=== PATIENT | female | born 1985 | race Caucasian/White ===

== ENCOUNTER 2016-03-12 03:50 | Emergency (ER) | payer BC ==
[~2016-03-12] VITALS: Ht 160 cm; Wt 81.0 kg
[~2016-03-12 03:50] MED LIST: HYDR-902 PO; IBUP800T25 PO; NO MEDS
[2016-03-12 03:58] VITALS: Ht 160 cm; Wt 81.0 kg
[2016-03-12] MEDS ORDERED: ONDANSETRON 4 MG INJ IV STA (04:44)
[2016-03-12] MEDS ORDERED: SOD CHLORIDE 0.9% 1,000 ML IV STA (04:44)
[2016-03-12] MEDS ORDERED: morphine 4 MG/ML VIAL IV STA (04:44)
[2016-03-12 05:11] LABS: BASOPHILS % 0.4 % (0.0-2.0); EOSINOPHILS # 0.1 10^3/ul (0.0-0.5); EOSINOPHILS % 1.1 % (0.0-7.0); HEMATOCRIT 39.9 % (37.0-47.0); HEMOGLOBIN 13.6 g/dl (12.0-16.0); LYMPHOCYTES # 2.1 10^3/ul (0.8-2.9); LYMPHOCYTES % 19.1 % (15.0-51.0); MEAN CORPUSCULAR HEMOGLOBIN 28.8 pg (29.0-33.0); MEAN CORPUSCULAR VOLUME 84.7 fl (82.0-101.0); MEAN PLATELET VOLUME 8.5 fl (7.4-10.4); MONOCYTE # 0.7 10^3/ul (0.3-0.9); MONOCYTES % 6.6 % (0.0-11.0); NEUTROPHIL # 7.9 10^3/ul (1.6-7.5); NEUTROPHILS % 72.8 % (39.0-77.0); PLATELET COUNT 291 10^3/UL (140-440); RED BLOOD COUNT 4.71 10^6/ul (4.20-5.40); RED CELL DISTRIBUTION WIDTH 12.3 % (11.5-14.5); UNCORRECTED WBC 10.8 10^3/ul (4.8-10.8); WHITE BLOOD COUNT 10.8 10^3/ul (4.8-10.8)
[2016-03-12 05:16] LABS: ALBUMIN 4.1 g/dl (3.3-4.9)
[2016-03-12 05:17] LABS: POTASSIUM 4.2 mmol/L (3.5-5.1)
[2016-03-12 05:19] LABS: ALBUMIN/GLOBULIN RATIO 1.17; BILIRUBIN,INDIRECT 0.1 mg/dl (0-1.1); BILIRUBIN,TOTAL 0.1 mg/dl (0.2-1.3); CREATININE 0.65 mg/dl (0.44-1.00); TOTAL PROTEIN 7.6 g/dl (6.1-8.1)
[2016-03-12 05:20] LABS: CALCIUM 9.5 mg/dl (8.4-10.2)
[2016-03-12 05:22] LABS: CONDITION 1
--- NOTE | 2016-03-12 05:40 | RADRPT ---
PROCEDURE: US Abdomen (right upper quadrant). CLINICAL INDICATION: Abdominal pain. TECHNIQUE: Multiple real-time longitudinal and transverse images of the right upper quadrant of th e abdomen were acquired utilizing a curved array transducer. Images were reviewed on a high-resoluti on PACS workstation. COMPARISON: None FINDINGS: The liver is normal in size and demonstrates normal echogenicity. No focal intrahepatic mass is id entified. The gallbladder contains stones. There is no pericholecystic fluid or gallbladder wall t hickening. No intra or extrahepatic biliary dilatation is seen. The common bile duct measures 4.4 m m in maximal dimension. The portal and hepatic veins are patent demonstrating normal directional tuan w. The visualized portions of the pancreas are unremarkable with obscuration of the tail of the panc reas. No free fluid is identified. The right kidney measures 12.6 cm in length. There is normal echogenicity within the right kidney. There is no perinephric fluid collection. No hydronephrosis, mass, or calculus is seen. IMPRESSION: Cholelithiasis. RPTAT: HH .Brianda Al MD, MD Date Time Electronically viewed and signed by .Brianda Al MD, MD on 03/12/2016 05:40 .G/
--- NOTE | 2016-03-12 05:46 | ERD ---
ER Documentation Chief Complaint Date/Time DATE: 03/12/16 TIME: 05:44 Chief Complaint right side abd pain since 0130, same as previous GB pain. -n/v HPI This a very pleasant 30 year female comes right-sided abdominal pain since 131. She has history of gallstones and says is similar to previous pain. Pain is mild to moderate intensity. Mild nausea no vomiting. Pain is mild to moderate in intensity with no exacerbating or relieving factors. ROS All systems reviewed and are negative except as per history of present illness. Medications Home Meds Active Scripts Hydrocodone/Acetaminophen ([place] 10-325 Tablet) 1 Each Tablet, 1 EACH PO Q6, # 20 TAB Prov:ANA LEONG PA-C 02/14/16 Ibuprofen* (Motrin*) 800 Mg Tab, 800 MG PO Q6H Y for PAIN AND OR ELEVATED TEMP, #30 TAB Prov:NAA LEONG PA-C 02/14/16 Reported Medications [No Meds] No Conflict Check 08/08/15 Allergies Allergies: Coded Allergies: No Known Allergy (Unverified , 02/14/16) PMhx/Soc History of Surgery: Yes (NOSE) Anesthesia Reaction: No Hx Neurological Disorder: No Hx Respiratory Disorders: No Hx Cardiac Disorders: No Hx Psychiatric Problems: No Hx Miscellaneous Medical Probl: No Hx Alcohol Use: Yes (OCCASIONAL) Hx Substance Use: No Hx Tobacco Use: No Smoking Status: Never smoker Physical Exam Vitals Vital Signs Date Time Temp Pulse Resp B/P Pulse Ox O2 Delivery O2 Flow Rate FiO2 03/12/16 03:58 97.6 64 18 136/87 99 Physical Exam Const: [] Head: Atraumatic Eyes: Normal Conjunctiva ENT: Normal External Ears, Nose and Mouth. Neck: Full range of motion..~ No meningismus. Resp: Clear to auscultation bilaterally Cardio: Regular rate and rhythm, no murmurs Abd: Soft, non tender, non distended. Normal bowel sounds Skin: No petechiae or rashes Back: No midline or flank tenderness Ext: No cyanosis, or edema Neur: Awake and alert Psych: Normal Mood and Affect Result Diagram: 03/12/16 0450 03/12/16 0450 Results 24 hrs Laboratory Tests Test 03/12/16 04:50 Alanine Aminotransferase (ALT/SGPT) 30IU/L Albumin 4.1g/dl Albumin/Globulin Ratio 1.17 Alkaline Phosphatase 71IU/L Anion Gap 19 Aspartate Amino Transf (AST/SGOT) 23IU/L Basophils # 0.010^3/ul Basophils % 0.4% Blood Morphology Comment Blood Urea Nitrogen 14mg/dl Calcium Level 9.5mg/dl Carbon Dioxide Level 27mmol/L Chloride Level 102mmol/L Creatinine 0.65mg/dl Direct Bilirubin 0.00mg/dl Eosinophils # 0.110^3/ul Eosinophils % 1.1% Globulin 3.50g/dl Glucose Level 95mg/dl Hematocrit 39.9% Hemoglobin 13.6g/dl Indirect Bilirubin 0.1mg/dl Lipase 105U/L Lymphocytes # 2.110^3/ul Lymphocytes % 19.1% Mean Corpuscular Hemoglobin 28.8pg Mean Corpuscular Hemoglobin Concent 34.0g/dl Mean Corpuscular Volume 84.7fl Mean Platelet Volume 8.5fl Monocytes # 0.710^3/ul Monocytes % 6.6% Neutrophils # 7.910^3/ul Neutrophils % 72.8% Nucleated Red Blood Cells # 0.010^3/ul Nucleated Red Blood Cells % 0.0/100WBC Platelet Count 52544^3/UL Potassium Level 4.2mmol/L Red Blood Count 4.7110^6/ul Red Cell Distribution Width 12.3% Sodium Level 144mmol/L Total Bilirubin 0.1mg/dl Total Protein 7.6g/dl White Blood Count 10.810^3/ul Current Medications Medications (Trade) Dose Ordered Sig/Isis Route PRN Reason Start Time Stop Time Status Last Admin Dose Admin Sodium Chloride (NS) 1,000 ml @ 1,000 mls/hr Q1H STAT IV 03/12/16 04:44 03/12/16 05:43 DC 03/12/16 04:56 Morphine Sulfate (morphine) 4 mg ONCE STAT IV 03/12/16 04:44 03/12/16 04:45 DC 03/12/16 04:56 Ondansetron HCl (Zofran Inj) 4 mg ONCE STAT IV 03/12/16 04:44 03/12/16 04:46 DC 03/12/16 04:56 Procedures/MDM CBC: no e/o of systemic infection or severe anemia CMP: no e/o severe acidosis, alkalosis, renal failure, diabetic ketoacidosis, liver disease Lipase: no e/o pancreatitis PT/INR: normal coagulation Urine: no e/o acute infection or hematuria Ultrasound shows cholelithiasis. Please see radiologist full dictation for report. Medical decision-making: This 21 female as well as a gallstone pain. At this point is clinically stable. To be discharged home with tramadol and Zofran. His return 8 hours for serial abdominal exams which he agrees. Departure Diagnosis: Primary Impression: Abdominal pain Abdominal location: right upper quadrant Qualified Code: R10.11 - Right upper quadrant abdominal pain Additional Impression: Gallstones Condition: Serious CORRIE COSTA Mar 12, 2016 05:46
[2016-03-12] MEDS ORDERED: ONDA4TAB14 PO (05:47)
[2016-03-12] MEDS ORDERED: HYDR-902 PO (05:47)
[2016-03-12 05:52] LABS: ADD UMIC YES; URINE BILIRUBIN (Dip) NEGATIVE (NEGATIVE); URINE BLOOD (Dip) TRACE (NEGATIVE); URINE COLOR LT. YELLOW (YELLOW); URINE GLUCOSE (Dip) NEGATIVE (NEGATIVE); URINE KETONES (Dip) TRACE (NEGATIVE); URINE LEUKOCYTE ESTERASE (Dip) TRACE (NEGATIVE); URINE NITRITE (Dip) NEGATIVE (NEGATIVE); URINE TOTAL PROTEIN (Dip) NEGATIVE (NEGATIVE); URINE UROBILINOGEN (Dip) 0.2 E.U./dL (0.1-1.0)
[2016-03-12 05:56] VITALS: BP 128/94; PULSE 79; RESP 18
[2016-03-12 06:44] LABS: SQUAMOUS EPITHELIAL CELL,UR FEW; URINE RBCS 0-2 /HPF (0)
== END 2016-03-12 05:54 | disposition home or self-care (01) ==
LOC: EEVIPCON 03:50 → E/R 03:50
DX: R10.11 Right upper quadrant pain (principal); K80.20 Calculus of gallbladder without cholecystitis without obstruction; R11.0 Nausea
CPT/HCPCS: 76705; 80053; 81001; 81003; 83690; 85025; J2270; J2405; J7030; 36415; 96374; 96375

== ENCOUNTER → 2016-03-21 | Outpatient (CLI) | payer BC ==
[~2016-03-21] MED LIST changes: +ONDA4TAB14 PO
[2016-03-21 07:37] LABS: BASOPHIL # 0.1 10^3/ul (0.0-0.1); BASOPHILS % 0.6 % (0.0-2.0); EOSINOPHILS # 0.2 10^3/ul (0.0-0.5); EOSINOPHILS % 1.9 % (0.0-7.0); HEMATOCRIT 42.2 % (37.0-47.0); HEMOGLOBIN 14.6 g/dl (12.0-16.0); LYMPHOCYTES # 2.6 10^3/ul (0.8-2.9); LYMPHOCYTES % 25.2 % (15.0-51.0); MEAN CORPUSCULAR HEMOGLOBIN 29.1 pg (29.0-33.0); MEAN CORPUSCULAR HGB CONC 34.6 g/dl (32.0-37.0); MEAN CORPUSCULAR VOLUME 84.1 fl (82.0-101.0); MEAN PLATELET VOLUME 8.2 fl (7.4-10.4); MONOCYTE # 0.7 10^3/ul (0.3-0.9); MONOCYTES % 6.6 % (0.0-11.0); NEUTROPHIL # 6.8 10^3/ul (1.6-7.5); NEUTROPHILS % 65.7 % (39.0-77.0); PLATELET COUNT 274 10^3/UL (140-440); RED BLOOD COUNT 5.02 10^6/ul (4.20-5.40); RED CELL DISTRIBUTION WIDTH 12.6 % (11.5-14.5); UNCORRECTED WBC 10.4 10^3/ul (4.8-10.8); WHITE BLOOD COUNT 10.4 10^3/ul (4.8-10.8)
[2016-03-21 07:47] LABS: INR 0.91; PROTIME 12.3 Sec (12.2-14.2)
[2016-03-21 07:48] LABS: PARTIAL THROMBOPLASTIN TIME 30.2 Sec (25.0-35.0)
[2016-03-21 07:52] LABS: ALBUMIN 4.2 g/dl (3.3-4.9); POTASSIUM 4.2 mmol/L (3.5-5.1)
[2016-03-21 07:54] LABS: BILIRUBIN,INDIRECT 0.2 mg/dl (0-1.1); BILIRUBIN,TOTAL 0.2 mg/dl (0.2-1.3); CREATININE 0.59 mg/dl (0.44-1.00)
[2016-03-21 07:55] LABS: ALBUMIN/GLOBULIN RATIO 1.13; CALCIUM 9.5 mg/dl (8.4-10.2); TOTAL PROTEIN 7.9 g/dl (6.1-8.1)
[2016-03-21 08:02] LABS: CONDITION 1
== END | disposition home or self-care (01) ==
LOC: LAB 07:19
PROVIDERS: ATTEND Internal Medicine
DX: D64.9 Anemia, unspecified (principal); K80.20 Calculus of gallbladder without cholecystitis without obstruction
CPT/HCPCS: 80053; 85025; 85610; 85730

== ENCOUNTER → 2016-07-02 | Outpatient (CLI) | payer BC ==
[2016-07-02 07:47] LABS: ADD SCAN DIFF NO
[2016-07-02 07:50] LABS: BASOPHIL # 0.1 10^3/ul (0.0-0.1); BASOPHILS % 0.9 % (0.0-2.0); EOSINOPHILS # 0.1 10^3/ul (0.0-0.5); EOSINOPHILS % 1.2 % (0.0-7.0); HEMATOCRIT 42.2 % (37.0-47.0); HEMOGLOBIN 13.6 g/dl (12.0-16.0); LYMPHOCYTES # 2.5 10^3/ul (0.8-2.9); LYMPHOCYTES % 27.9 % (15.0-51.0); MEAN CORPUSCULAR HEMOGLOBIN 28.2 pg (29.0-33.0); MEAN CORPUSCULAR HGB CONC 32.2 g/dl (32.0-37.0); MEAN CORPUSCULAR VOLUME 87.6 fl (82.0-101.0); MEAN PLATELET VOLUME 9.9 fl (7.4-10.4); MONOCYTE # 0.6 10^3/ul (0.3-0.9); MONOCYTES % 6.2 % (0.0-11.0); NEUTROPHIL # 5.6 10^3/ul (1.6-7.5); NEUTROPHILS % 63.3 % (39.0-77.0); PLATELET COUNT 309 10^3/UL (140-415); RED BLOOD COUNT 4.82 10^6/ul (4.20-5.40); WHITE BLOOD COUNT 8.8 10^3/ul (4.8-10.8)
[2016-07-02 08:18] LABS: ALBUMIN 4.2 g/dl (3.3-4.9); ALBUMIN/GLOBULIN RATIO 1.2; BILIRUBIN,INDIRECT 0.1 mg/dl (0-1.1); BILIRUBIN,TOTAL 0.1 mg/dl (0.2-1.3); CALCIUM 9.2 mg/dl (8.4-10.2); CHOL/HDL RATIO 3.2 RATIO; CREATININE 0.66 mg/dl (0.44-1.00); POTASSIUM 4.2 mmol/L (3.5-5.1); TOTAL PROTEIN 7.7 g/dl (6.1-8.1)
[2016-07-02 08:43] LABS: THYROID STIMULATING HORMONE 0.733 MIU/L (0.465-4.680)
== END | disposition home or self-care (01) ==
LOC: LAB 07:18
PROVIDERS: ATTEND Internal Medicine
DX: E55.9 Vitamin D deficiency, unspecified (principal); R73.03 Prediabetes; E03.9 Hypothyroidism, unspecified
CPT/HCPCS: 80053; 80061; 82306; 83036; 84436; 84443; 85025

== ENCOUNTER 2016-07-15 08:51 | Emergency (ER) | payer BC ==
[~2016-07-15] VITALS: Wt 71.9 kg
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
[2016-07-15] MEDS ORDERED: HYDROCODONE/APAP (5/325) TAB PO ONE (10:00)
--- NOTE | 2016-07-15 11:29 | RADRPT ---
PROCEDURE: XR Cervical Spine. CLINICAL INDICATION: Neck pain TECHNIQUE: AP, lateral and odontoid views of the cervical spine were performed. The images were re viewed on a PACS workstation. COMPARISON: None. FINDINGS: Cervical spine is visualized to the level of C7-T1. No displaced fracture is identified. The align ment of the cervical spine is anatomic. Vertebral body heights and disk spaces are well maintained. Facets are normally aligned. The lateral masses are symmetric. The prevertebral soft tissues are u nremarkable. IMPRESSION: 1. No acute fracture dislocation. 2. No significant degenerate change. RPTAT: HH .Marek Alejandra MD, Date Time Electronically viewed and signed by .Marek Alejandra MD, on 07/15/2016 11:29 .W/
--- NOTE | 2016-07-15 11:29 | RADRPT ---
PROCEDURE: Shoulder x-ray CLINICAL INDICATION: Pain TECHNIQUE: Left shoulder 3 views COMPARISON: None FINDINGS: 3 views of the left shoulder demonstrate no displaced fracture. The humeral head articulates anatom ically with the glenoid fossa. The acromioclavicular articulation is within normal limits. Bones a re normally mineralized. Soft tissues are unremarkable. IMPRESSION: No acute fracture dislocation No significant degenerate change RPTAT: HH .Marek Alejandra MD, Date Time Electronically viewed and signed by .Marek Alejandra MD, on 07/15/2016 11:28 .W/
--- NOTE | 2016-07-15 11:38 | RADRPT ---
PROCEDURE: XR Wrist. CLINICAL INDICATION: Left wrist pain TECHNIQUE: 4 views of the left wrist were performed. COMPARISON: No prior studies are available for comparison. FINDINGS: There is no acute fracture or dislocation. Alignment is normal. Joint spaces are preserved. Visualized soft tissues are grossly unremarkable. IMPRESSION: 1. No radiographic evidence of acute osseous abnormality of the left wrist. RPTAT: UU .Guido Hazel MD, MD Date Time Electronically viewed and signed by .Guido Hazel MD, on 07/15/2016 11:38 .K/
--- NOTE | 2016-07-15 11:39 | RADRPT ---
PROCEDURE: XR left humerus CLINICAL INDICATION: Left upper extremity pain TECHNIQUE: 2 images of the left humerus COMPARISON: None available FINDINGS: There is no radiographic evidence of acute osseous abnormality of the left humerus. Visualized soft tissues are grossly unremarkable. IMPRESSION: Normal radiographs of the left humerus. RPTAT: UU .Guido Hazel MD, MD Date Time Electronically viewed and signed by .Guido Hazel MD, on 07/15/2016 11:38 .K/
--- NOTE | 2016-07-15 11:41 | RADRPT ---
PROCEDURE: XR Lumbar Spine. CLINICAL INDICATION: Low back pain TECHNIQUE: 3 images of the lumbar spine were obtained. COMPARISON: No prior studies are available for comparison. FINDINGS: There is transitional anatomy with rudimentary rib at T12 on the right and partial sacralization of L5 on the right. Vertebral body height and alignment is preserved. There is no radiographic evidence of acute fracture or subluxation. Intervertebral disk spaces are preserved. Paraspinal soft tissues are grossly unremarkable. Limited assessment of the sacroiliac joints is grossly unremarkable. IMPRESSION: 1. No radiographic evidence of acute osseous abnormality. 2. Transitional anatomy with rudimentary rib at T12 on the right and partial sacralization of L5 on the left. RPTAT: UU .Guido Hazel MD, MD Date Time Electronically viewed and signed by .Guido Hazel MD, on 07/15/2016 11:40 .K/
[2016-07-15] MEDS ORDERED: NAPR-260 PO (12:00)
[2016-07-15] MEDS ORDERED: CYCL-319 PO (12:00)
[2016-07-15] MEDS ORDERED: TRAM50TA2 PO (12:00)
[2016-07-15] MEDS ORDERED: NEOM1PAC TP (12:00)
== END 2016-07-15 12:24 | disposition home or self-care (01) ==
LOC: FTE 08:51
DX: M54.9 Dorsalgia, unspecified (principal); M54.2 Cervicalgia; M79.602 Pain in left arm; Z04.1 Encounter for examination and observation following transport accident
CPT/HCPCS: 72040; 72100; 73030; 73060

== ENCOUNTER → 2016-11-24 | Outpatient (CLI) | payer BC ==
[~2016-11-24] MED LIST changes: +CYCL-319 PO; +NAPR-260 PO; +NEOM1PAC TP; +TRAM50TA2 PO
[2016-11-24 12:26] LABS: BASOPHIL # 0.1 10^3/ul (0.0-0.1); EOSINOPHILS # 0.1 10^3/ul (0.0-0.5); EOSINOPHILS % 1.4 % (0.0-7.0); HEMATOCRIT 42.8 % (37.0-47.0); LYMPHOCYTES % 31.1 % (15.0-51.0); MEAN CORPUSCULAR HEMOGLOBIN 28.3 pg (29.0-33.0); MEAN CORPUSCULAR HGB CONC 32.7 g/dl (32.0-37.0); MEAN CORPUSCULAR VOLUME 86.6 fl (82.0-101.0); MEAN PLATELET VOLUME 10.5 fl (7.4-10.4); MONOCYTE # 0.6 10^3/ul (0.3-0.9); MONOCYTES % 6.2 % (0.0-11.0); NEUTROPHIL # 5.8 10^3/ul (1.6-7.5); PLATELET COUNT 290 10^3/UL (140-415); RED BLOOD COUNT 4.94 10^6/ul (4.20-5.40); RED CELL DISTRIBUTION WIDTH 12.1 % (11.5-14.5); WHITE BLOOD COUNT 9.6 10^3/ul (4.8-10.8)
[2016-11-24 12:44] LABS: PT RATIO 0.9
[2016-11-24 12:46] LABS: PARTIAL THROMBOPLASTIN TIME 30.5 Sec (25.0-35.0)
[2016-11-24 12:47] LABS: ALBUMIN 4.3 g/dl (3.3-4.9); ALBUMIN/GLOBULIN RATIO 1.22; BILIRUBIN,INDIRECT 0.1 mg/dl (0-1.1); BILIRUBIN,TOTAL 0.1 mg/dl (0.2-1.3); CALCIUM 9.5 mg/dl (8.4-10.2); CREATININE 0.58 mg/dl (0.44-1.00); POTASSIUM 4.1 mmol/L (3.5-5.1); TOTAL PROTEIN 7.8 g/dl (6.1-8.1)
[2016-11-24 13:27] LABS: INR 0.85; PROTIME 11.6 Sec (12.2-14.2)
== END | disposition home or self-care (01) ==
LOC: LAB 12:01
PROVIDERS: ATTEND Internal Medicine
DX: K81.0 Acute cholecystitis (principal)
CPT/HCPCS: 80053; 85025; 85610; 85730; 87040

== ENCOUNTER 2017-02-04 14:03 | Emergency (ER) | payer BC ==
[~2017-02-04] VITALS: Ht 157.5 cm; Wt 80.0 kg
[2017-02-04 14:05] VITALS: Ht 157.5 cm; Wt 80.0 kg
[2017-02-04] MEDS ORDERED: KETOROLAC 60 MG INJ IM STA (14:19)
[2017-02-04 14:53] LABS: ADD UMIC NO; UR ASCORBIC ACID NEGATIVE (NEGATIVE); UR BILIRUBIN (Dip) NEGATIVE (NEGATIVE); UR BLOOD (Dip) NEGATIVE (NEGATIVE); UR CLARITY CLEAR (CLEAR); UR COLOR YELLOW (YELLOW); UR GLUCOSE (Dip) NEGATIVE (NEGATIVE); UR KETONES (Dip) NEGATIVE (NEGATIVE); UR LEUKOCYTE ESTERASE (Dip) NEGATIVE Leu/ul (NEGATIVE); UR NITRITE (Dip) NEGATIVE (NEGATIVE); UR SPECIFIC GRAVITY (Dip) 1.008 (1.003-1.030); UR TOTAL PROTEIN (Dip) NEGATIVE (NEGATIVE); UR UROBILINOGEN (Dip) NEGATIVE (NEGATIVE)
[2017-02-04] MEDS ORDERED: IBUP-1542 PO (15:05)
[2017-02-04] MEDS ORDERED: CYCL-319 PO ×2 (15:05→15:09)
--- NOTE | 2017-02-04 15:46 | ERD ---
ER Documentation Chief Complaint Chief Complaint BACK PAIN X 1 WEEK HPI 31 year old female presents to the emergency department complaining of left moderate lumbar back pain for one week. She denies trauma, painful urination, hematuria, fevers. ROS All systems reviewed and are negative except as per history of present illness. Medications Home Meds Active Scripts Cyclobenzaprine Hcl* (Cyclobenzaprine Hcl*) 10 Mg Tablet, 10 MG PO TID, #30 TAB Prov:RICHA HOYT PA-C 02/04/17 Ibuprofen* (Motrin*) 600 Mg Tab, 600 MG PO Q6H Y for PAIN AND OR ELEVATED TEMP, #30 TAB Prov:RICHA HOYT PA-C 02/04/17 Cyclobenzaprine Hcl* (Cyclobenzaprine Hcl*) 10 Mg Tablet, 10 MG PO QHS, #7 TAB Prov:WALLY GRANADOS PA-C 07/15/16 Naproxen* (Naprosyn*) 500 Mg Tablet, 500 MG PO BID Y for PAIN AND/OR INFLAMMATION, #30 TAB Prov:WALLY GRANADOS PA-C 07/15/16 Tramadol HCl (Tramadol HCl) 50 Mg Tablet, 50 MG PO Q4 Y for PAIN, #20 TAB Prov:WALLY GRANADOS PA-C 07/15/16 Neomycin Ryan/Bacitrac Zn/Poly (Triple Antibiotic Ointment) 1 Each Oint.pack, 1 EACH TP BID for 7 Days Prov:WALLY GRANADOS PA-C 07/15/16 Ondansetron (Ondansetron Odt) 4 Mg Tab.rapdis, 4 MG PO Q6H Y for NAUSEA AND/OR VOMITING, #10 TAB Prov:CORRIE COSTA. 03/12/16 Hydrocodone/Acetaminophen ([place] 10-325 Tablet) 1 Each Tablet, 1 TAB PO Q6H Y for PAIN, #20 TAB Prov:CORRIE COSTA S. 03/12/16 Hydrocodone/Acetaminophen ([place] 10-325 Tablet) 1 Each Tablet, 1 EACH PO Q6, # 20 TAB Prov:ANA LEONG PA-C 02/14/16 Ibuprofen* (Motrin*) 800 Mg Tab, 800 MG PO Q6H Y for PAIN AND OR ELEVATED TEMP, #30 TAB Prov:ANA LEONG PA-C 02/14/16 Reported Medications [No Meds] No Conflict Check 08/08/15 Allergies Allergies: Coded Allergies: No Known Allergy (Unverified , 02/14/16) PMhx/Soc History of Surgery: Yes (NOSE) Anesthesia Reaction: No Hx Neurological Disorder: No Hx Respiratory Disorders: No Hx Cardiac Disorders: No Hx Psychiatric Problems: No Hx Miscellaneous Medical Probl: No Hx Alcohol Use: Yes (OCCASIONAL) Hx Substance Use: No Hx Tobacco Use: No Smoking Status: Never smoker Physical Exam Vitals Vital Signs Date Time Temp Pulse Resp B/P Pulse Ox O2 Delivery O2 Flow Rate FiO2 02/04/17 14:05 98.1 78 18 130/78 99 Physical Exam Const: WDWN, no acute distress Head: Atraumatic Eyes: Normal Conjunctiva ENT: Normal External Ears, Nose and Mouth. Neck: Full range of motion..~ No meningismus. Resp: Clear to auscultation bilaterally Cardio: Regular rate and rhythm, no murmurs Abd: Soft, non tender, non distended. Normal bowel sounds Skin: No petechiae or rashes Back: No midline or flank tenderness TTP on the left lumbar region Ext: No cyanosis, or edema Neur: Awake and alert Psych: Normal Mood and Affect Results 24 hrs Laboratory Tests Test 02/04/17 14:35 Urine Color YELLOW Urine Clarity CLEAR Urine pH 6.0 Urine Specific [place] 1.008 Urine Ketones NEGATIVEmg/dL Urine Nitrite NEGATIVEmg/dL Urine Bilirubin NEGATIVEmg/dL Urine Urobilinogen NEGATIVEmg/dL Urine Leukocyte Esterase NEGATIVELeu/ul Urine Hemoglobin NEGATIVEmg/dL Urine Glucose NEGATIVEmg/dL Urine Total Protein NEGATIVEmg/dl Current Medications Medications (Trade) Dose Ordered Sig/Isis Route PRN Reason Start Time Stop Time Status Last Admin Dose Admin Ketorolac Tromethamine (Toradol) 60 mg ONCE STAT IM 02/04/17 14:19 02/04/17 14:20 DC 02/04/17 15:13 Procedures/MDM 31 year old female presenting to the emergency department complaining of left lumbar back pain, likely due to a strain. Evidence of cauda equina or fracture. She did not have any evidence of obstructed or septic nephrolithiasis or UTI, pyelonephritis. Patient was given toradol, I have reassesed her and she feels better. Discharged home with prescription for Flexeril and ibuprofen Departure Diagnosis: Primary Impression: Lumbar strain Condition: Stable Patient Instructions: Self-Care for Low Back Pain, Back Exercises, Lumbar, Back Sprain/Strain Additional Instructions: FOLLOW UP WITH YOUR PRIMARY CARE PHYSICIAN TOMORROW.Return to this facility if you are not improving as expected. Take all medicines as directed. Return to this facility if you are not improving as expected. You have been given a medicine which may cause drowsiness.DO NOT DRIVE OR OPERATE DANGEROUS MACHINERY while taking this medicine! RICHA HOYT PA-C Feb 04, 2017 15:46
== END 2017-02-04 16:35 | disposition home or self-care (01) ==
LOC: FTE 14:03
DX: S39.012A Strain of muscle, fascia and tendon of lower back, initial encounter (principal); X58.XXXA Exposure to other specified factors, initial encounter; Y92.9 Unspecified place or not applicable
CPT/HCPCS: 81003; 96372; 99284; J1885

== ENCOUNTER → 2017-03-05 | Outpatient (CLI) | payer BC ==
[~2017-03-05] MED LIST changes: +IBUP-1542 PO
[2017-03-05 07:55] LABS: ADD UMIC NO; UR ASCORBIC ACID NEGATIVE (NEGATIVE); UR BACTERIA FEW /HPF (NONE SEEN); UR BILIRUBIN (Dip) NEGATIVE (NEGATIVE); UR BLOOD (Dip) NEGATIVE (NEGATIVE); UR CLARITY SLIGHTLY CLOUDY (CLEAR); UR COLOR YELLOW (YELLOW); UR GLUCOSE (Dip) NEGATIVE (NEGATIVE); UR KETONES (Dip) NEGATIVE (NEGATIVE); UR LEUKOCYTE ESTERASE (Dip) NEGATIVE Leu/ul (NEGATIVE); UR MUCUS FEW /HPF (NONE SEEN); UR NITRITE (Dip) NEGATIVE (NEGATIVE); UR RBC 3 /HPF (0-5); UR SPECIFIC GRAVITY (Dip) 1.024 (1.003-1.030); UR SQUAMOUS EPITHELIAL CELL FEW /HPF (FEW); UR TOTAL PROTEIN (Dip) NEGATIVE (NEGATIVE); UR UROBILINOGEN (Dip) NEGATIVE (NEGATIVE)
== END | disposition home or self-care (01) ==
LOC: LAB 07:12
PROVIDERS: ATTEND Internal Medicine
DX: N39.0 Urinary tract infection, site not specified (principal)
CPT/HCPCS: 81001; 81003; 87086

== ENCOUNTER → 2017-08-12 | Outpatient (CLI) | END | disposition home or self-care (01) ==

== ENCOUNTER 2017-09-07 18:52 | Inpatient (IN) | END 2017-09-12 16:05 | disposition home or self-care (01) | DRG 418 ==

== ENCOUNTER → 2017-09-21 | Outpatient (CLI) | END | disposition home or self-care (01) ==

== ENCOUNTER → 2017-11-13 | Outpatient (CLI) | END | disposition home or self-care (01) ==

== ENCOUNTER → 2018-04-20 | Outpatient (CLI) | payer BC ==
[~2018-04-20] MED LIST changes: -CYCL-319 PO; +HYDR-4011 PO; -HYDR-902 PO; -IBUP-1542 PO; -IBUP800T25 PO; +METF500T24 PO; -NAPR-260 PO; -NEOM1PAC TP; -NO MEDS; -ONDA4TAB14 PO; -TRAM50TA2 PO; +TRAZ-111 PO
== END | disposition home or self-care (01) ==
LOC: LAB 08:24
PROVIDERS: ATTEND Internal Medicine
DX: R73.03 Prediabetes (principal); E78.5 Hyperlipidemia, unspecified; E03.9 Hypothyroidism, unspecified
CPT/HCPCS: 80053; 80061; 83036; 84436; 84443; 85025